=== PATIENT | male | born 1970 | race African-American/Black ===

== ENCOUNTER → 2017-10-08 | Outpatient (CLI) | payer OTHER ==
--- NOTE | 2017-10-08 14:48 | Diagnostic Imaging Report ---
PROCEDURE:X-RAY RIGHT HEEL COMPARISON:None. INDICATIONS:HEEL PAIN FINDINGS: See conclusion. CONCLUSION: No acute fracture or dislocation of the right calcaneus. Tiny plantar and dorsal calcaneal enthesophytes. Dictated by: Sean Todd M.D. on 10/08/2017 at 14:53 Electronically approved by: Sean Todd M.D. on 10/08/2017 at 14:53
== END ==
LOC: RAD 13:38
PROVIDERS: ATTEND Family Medicine
DX: M79.671 Pain in right foot (principal)